=== PATIENT | female | born 1965 | race Caucasian/White ===

== ENCOUNTER 2020-03-22 10:57 | Outpatient (REF) | payer MEDICAID, SELFPAY ==
--- NOTE | 2020-03-22 10:11 | SKI_PTH ---
PATIENT: RAMONA NEVILLE LOC: [facility] U#:[id number] AGE/SX: 54/F ROOM: RE03/22/[address]: Dannie Odonnell DO : 1965 BED: DIS: 03/22/2020 SPEC #: [id number] RECD: 03/22/20 18:18 STATUS: SAEED REQ #: [id number] MINNIE: 03/22/20 10:[address]: Dannie Odonnell DEPT: Surgical Specimen RECD BY: Autumn Meier ENTERED: 03/22/20 18:19 SP TYPE: SKI OTHR DR: Nanda Carmen Tissues: 1 - SKIN BIOPSY(SHAVE/PUNCH) Procedures: SKIN LEVEL 4 Comments: [id number]
== END 2020-03-22 11:17 ==
LOC: LBN 10:57
PROVIDERS: PCP Nurse Practitioner; Visit Provider Otolaryngology Otolaryngology/Facial Plastic Surgery
DX: L82.1 Other seborrheic keratosis (principal)
CPT/HCPCS: 88305